=== PATIENT | male | born 1990 | race Caucasian/White ===

== ENCOUNTER 2016-10-19 15:29 | Inpatient (IN) | payer OTHER ==
[~2016-10-19] VITALS: Ht 185.4 cm; Wt 117.9 kg
--- NOTE | 2016-10-19 15:45 | NUR ---
Present self to ed due to abdominal pain, 7-8, radiating to the back associated with nausea and vomitting. Skin is warm to touch and non diaphoretic. Afebrile. Pt newly dx of pancreatis. will cont to monitor
[2016-10-19] MEDS ORDERED: ONDANSETRON HCL/PF 4 MG/2 ML VIAL ONE (15:56)
[2016-10-19] MEDS ORDERED: MORPHINE SULFATE INJ 4 MG/ML DISP.SYRIN ONE (15:56)
[2016-10-19] MEDS ORDERED: ONDANSETRON HCL/PF - ER 4 MG/2 ML VIAL IV ONE (16:00)
[2016-10-19] MEDS ORDERED: MORPHINE SULFATE INJ 2 MG/ML DISP.SYRIN IV ONE (16:00)
--- NOTE | 2016-10-19 16:00 | NUR ---
iv accessed to [facility]. blood sample sent to lab
[2016-10-19 16:01] LABS: BASOPHILS % (AUTO) 0.5 % (0.0-2.0); EOSINOPHILS # (AUTO) 0.2 /CMM (0.0-0.7); EOSINOPHILS % (AUTO) 2.1 % (0.0-6.0); HEMATOCRIT 46 % (39-51); HEMOGLOBIN 15.6 g/dL (13.5-17.5); LYMPHOCYTES # (AUTO) 2.4 /CMM (0.8-4.8); LYMPHOCYTES % (AUTO) 21.9 % (20.0-44.0); MEAN CORPUSCULAR HEMOGLOBIN 29 PG (26.0-33.0); MEAN CORPUSCULAR HGB CONC 34 g/dl (31.0-36.0); MEAN CORPUSCULAR VOLUME 84 fL (80-96); MONOCYTES # (AUTO) 0.9 /CMM (0.1-1.30); NEUTROPHILS # (AUTO) 7.4 /CMM (1.8-8.9); NEUTROPHILS % (AUTO) 67.5 % (43.0-81.0); PLATELET COUNT (AUTO) 334 /CMM (150-450); RDW COEFFICIENT OF VARIATION 12.2 (11.5-15.0); RED BLOOD CELL COUNT(AUTO) 5.41 MIL/uL (4.5-6.0); WHITE BLOOD COUNT (AUTO) 10.9 K/uL (4.3-11.0)
--- NOTE | 2016-10-19 16:04 | NUR ---
Medicated patient for pain as ordered
[2016-10-19 16:26] LABS: CALCIUM, SERUM 8.7 mg/dL (8.5-10.1); POTASSIUM 4.2 mmol/L (3.5-5.1)
[2016-10-19 16:33] LABS: ALBUMIN 4.1 g/dL (3.4-5.0); BILIRUBIN,DIRECT 0.1 mg/dL (0.0-0.2); BILIRUBIN,TOTAL 0.3 mg/dL (0.2-1.0); TOTAL PROTEIN, SERUM 7.3 g/dL (6.4-8.2)
--- NOTE | 2016-10-19 17:12 | NUR ---
DESIRE PAGED, DR. TREVOR Flores INTERACTIVE DEVELOPER
--- NOTE | 2016-10-19 17:14 | NUR ---
CALLED NURSING SUP. FOR MS BED
[2016-10-19] MEDS ORDERED: GLYC2TAB13 PO (17:15)
[2016-10-19] MEDS ORDERED: IV SET PRIMARY PUMP SET 1 EA INFUS.SET MC ONE ×2 (17:25→18:18)
[2016-10-19] MEDS ORDERED: IV NS 0.9% 1,000 ML ONE (17:25)
[2016-10-19] MEDS ORDERED: HYDROCODONE/APAP 5/325MG 1 EACH TABLET PO PRN (17:30)
[2016-10-19] MEDS ORDERED: MAG HYDROX/AL HYDROX/SIMETH 30 ML UDC PO PRN (17:30)
[2016-10-19] MEDS ORDERED: ZOLPIDEM TARTRATE 5 MG TABLET PO PRN (17:30)
[2016-10-19] MEDS ORDERED: MAGNESIUM HYDROXIDE 30 ML UDC PO PRN (17:30)
[2016-10-19] MEDS ORDERED: Z GUARD REMEDY 2 OZ OINT TP PRN (17:30)
[2016-10-19] MEDS ORDERED: ACETAMINOPHEN 325 MG TABLET PO PRN (17:30)
[2016-10-19] MEDS ORDERED: IV NS 0.9% 1,000 ML BAG IV ONE (17:30)
--- NOTE | 2016-10-19 17:48 | NUR ---
Report given to nurse Tompkins from [facility] for cherise
[2016-10-19] MEDS: IV NS 0.9% 1,000 ML IV PRN (18:24)
[2016-10-19 18:30] VITALS: BP 137/88
--- NOTE | 2016-10-19 19:30 | NUR ---
MS RN NOTE: PATIENT RESTING IN BED, NO ACUTE DISTRESS NOTED. BREATHING EVEN AND UNLABORED, NO SOB NOTED. IV TO RAC IN PLACE, INFUSING NS AT 150ML/HR. BED LOCKED AND IN LOWEST POSITION, CALL LIGHT IN REACH. WILL CONTINUE TO MONITOR.
--- NOTE | 2016-10-19 20:00 | NUR ---
MS RN NOTE: PATIENT RESTING IN BED, NO ACUTE DISTRESS NOTED. BREATHING EVEN AND UNLABORED, NO SOB NOTED. IV TO RFA IN PLACE. PATIENT BACK ON FLOOR FROM SURGERY, IN STABLE CONDITION, VITAL SIGNS STABLE. BED LOCKED AND IN LOWEST POSITION, CALL LIGHT IN REACH. WILL CONTINUE TO MONITOR. Addendum: 10/19/16 at 2027 by JOSE E ALCOCER RN WRONG PATIENT ENTRY
[2016-10-19 20:14] VITALS: BP 130/72
[2016-10-19] MEDS: ONDANSETRON HCL/PF 4 MG/2 ML VIAL IVP PRN (21:27)
[2016-10-19] MEDS: MORPHINE SULFATE INJ 2 MG/ML DISP.SYRIN IV PRN (21:28)
--- NOTE | 2016-10-19 21:35 | NUR ---
MS RN NOTE: PATIENT COMPLAINS OF ABDOMINAL PAIN 03/01, MORPHINE 2MG IV GIVEN PER MD ORDER. ZOFRAN 4MG IV ALSO GIVEN PER MD ORDER TO PREVENT NAUSEA. WILL CONTINUE TO MONITOR.
[2016-10-20] MEDS: IV NS 0.9% 1,000 ML IV PRN ×3 (04:20→22:28)
--- NOTE | 2016-10-20 06:00 | NUR ---
MS RN NOTE: PATIENT RESTING IN BED, NO ACUTE DISTRESS NOTED. BREATHING EVEN AND UNLABORED, NO SOB NOTED. IV TO RAC IN PLACE, INFUSING NS AT 150ML/HR. BED LOCKED AND IN LOWEST POSITION, CALL LIGHT IN REACH. WILL ENDORSE TO DAY NURSE TO CONTINUE WITH PLAN OF CARE.
[2016-10-20] MEDS: PANTOPRAZOLE 40 MG TABLET.DR PO SCH (06:35)
[2016-10-20] MEDS: MORPHINE SULFATE INJ 2 MG/ML DISP.SYRIN IV PRN ×4 (06:35→22:28)
--- NOTE | 2016-10-20 06:40 | NUR ---
MS RN NOTE: PATIENT COMPLAINS OF ABDOMINAL PAIN 04/01, MORPHINE 2MG IV GIVEN PER MD ORDER. WILL CONTINUE TO MONITOR.
[2016-10-20 06:56] LABS: BASOPHILS % (AUTO) 0.3 % (0.0-2.0); EOSINOPHILS # (AUTO) 0.2 /CMM (0.0-0.7); EOSINOPHILS % (AUTO) 1.8 % (0.0-6.0); HEMATOCRIT 43 % (39-51); HEMOGLOBIN 14.4 g/dL (13.5-17.5); LYMPHOCYTES # (AUTO) 2.7 /CMM (0.8-4.8); LYMPHOCYTES % (AUTO) 25.6 % (20.0-44.0); MEAN CORPUSCULAR HEMOGLOBIN 29 PG (26.0-33.0); MEAN CORPUSCULAR HGB CONC 34 g/dl (31.0-36.0); MEAN CORPUSCULAR VOLUME 85 fL (80-96); MONOCYTES # (AUTO) 0.8 /CMM (0.1-1.30); MONOCYTES % (AUTO) 7.8 % (2.0-12.0); NEUTROPHILS # (AUTO) 6.8 /CMM (1.8-8.9); NEUTROPHILS % (AUTO) 64.5 % (43.0-81.0); PLATELET COUNT (AUTO) 290 /CMM (150-450); RDW COEFFICIENT OF VARIATION 12.3 (11.5-15.0); RED BLOOD CELL COUNT(AUTO) 5.04 MIL/uL (4.5-6.0); WHITE BLOOD COUNT (AUTO) 10.6 K/uL (4.3-11.0)
[2016-10-20 07:08] LABS: ALBUMIN 3.4 g/dL (3.4-5.0); BILIRUBIN,TOTAL 0.6 mg/dL (0.2-1.0); CALCIUM, SERUM 8.4 mg/dL (8.5-10.1); CREATININE 0.9 mg/dL (0.6-1.3); MAGNESIUM 1.8 mg/dL (1.8-2.4); PHOSPHORUS 4.7 mg/dL (2.5-4.9); POTASSIUM 4.2 mmol/L (3.5-5.1); TOTAL PROTEIN, SERUM 6.2 g/dL (6.4-8.2)
--- NOTE | 2016-10-20 07:39 | NUR ---
MS/RN Patient received Patient received from publications manager. Pain level now down to 4/10 following morphine which was administered at 0635. Remains NPO, patient aware that he is unable to drink at this time. Call light within reach, Will continue to monitor.
[2016-10-20 07:54] LABS: THYROID STIMULATING HORMONE 1.44 uIU/mL (0.358-3.74)
[2016-10-20 08:00] VITALS: BP 117/65
--- NOTE | 2016-10-20 09:14 | NUR ---
MS/RN S/B DRILL PRESS OPERATOR NUMERICAL CONTROL student Seen by DRILL PRESS OPERATOR NUMERICAL CONTROL student for Dr Sharif - may have ice chips.
--- NOTE | 2016-10-20 09:25 | NUR ---
MS/RN New heplock New heplock inserted per patient request as current one is in AC and continuously beeping.
[2016-10-20] MEDS: ONDANSETRON HCL/PF 4 MG/2 ML VIAL IVP PRN ×2 (11:36→22:34)
--- NOTE | 2016-10-20 11:44 | NUR ---
MS/RN S/B Dr Brandt Seen by Dr Brandt - to continue with NPO, except medications and ice chips. Labs ordered for tomorrow.
--- NOTE | 2016-10-20 14:35 | NUR ---
MS/RN Rounds Patient resting comfortably at this time, states that pain level is 4/10. Will continue to monitor.
[2016-10-20 16:08] VITALS: BP 126/64
--- NOTE | 2016-10-20 18:05 | NUR ---
MS/RN End note Patient remains stable at this time. Last pain medication administered at 1551, per patient pain scale is now 3/10. IV fluids continue to infuse at 150ml/hr, no signs of infiltration seen. No new concerns, time allowed for all questions and concerns to be addressed. Will endorse to night club manager.
--- NOTE | 2016-10-20 19:25 | NUR ---
MS/RN NOTES RECEIVED PT. SITTING UP IN BED. AWAKE, ALERT AND ORIENTED X4. BREATHING EVEN AND UNLABORED ON ROOM AIR. NO SOB OR RESPIRATORY DISTRESS NOTED AT THIS TIME. PT. COMPLAINS OF PAIN 5/10 BUT STATES HE IS OK AND DOES NOT WANT PAIN MEDICATION AT THIS TIME. EDUCATED PT. ON IMPORTANCE OF PAIN MANAGEMENT. PT. VERBALIZED UNDERSTANDING AND STATED HE WILL NOTIFY NURSE IF PAIN LEVEL INCREASES AND HE WANTS PAIN MEDICATION. PT. WITH RIGHT AC 18 GAUGE IV SALINE LOCK PRESENT, PATENT AND INTACT. PT. WITH LEFT FOREARM 22 GAUGE PERIPHERAL IV PRESENT, PATENT AND INTACT ADMINISTERING TO PT. NS @ 150 ML/HR. PT. TOLERATING WELL. NO S/S OF INFILTRATION OR INFECTION NOTED AT IV SITES. PT. WITH FAMILY MEMBERS PRESENT AT BEDSIDE. BED IN LOWEST POSITION, CALL LIGHT WITHIN REACH, WILL CONTINUE TO MONITOR.
[2016-10-20 20:07] VITALS: BP 142/78
[2016-10-20] MEDS ORDERED: IV NS 0.9% 1,000 ML ONE (22:21)
--- NOTE | 2016-10-21 01:14 | NUR ---
MS/RN NOTES PT. LYING IN BED RESTING. BREATHING EVEN AND UNLABORED ON ROOM AIR. NO SOB, RESPIRATORY DISTRESS OR S/S OF PAIN NOTED AT THIS TIME. PT. APPEARS COMFORTABLE AT THE MOMENT. BED IN LOWEST POSITION, CALL LIGHT WITHIN REACH, WILL CONTINUE TO MONITOR.
[2016-10-21] MEDS ORDERED: IV NS 0.9% 1,000 ML ONE (04:51)
[2016-10-21] MEDS: IV NS 0.9% 1,000 ML IV PRN (04:57)
--- NOTE | 2016-10-21 06:43 | NUR ---
MS/RN NOTES PT. LYING IN BED RESTING. BREATHING EVEN AND UNLABORED ON ROOM AIR. NO SOB OR RESPIRATORY DISTRESS OR S/S OF PAIN NOTED AT THIS TIME. PT. WITH RIGHT AC 18 GAUGE IV SALINE LOCK PRESENT, PATENT AND INTACT. PT. WITH LEFT FOREARM 22 GAUGE PERIPHERAL IV PRESENT, PATENT AND INTACT ADMINISTERING TO PT. NS @ 150 ML/HR. ALL PT. NEEDS MET. PT. REMAINS NPO EXCEPT MEDS AND ICE CHIPS. BED IN LOWEST POSITION, CALL LIGHT WITHIN REACH, WILL ENDORSE TO DAYSHIFT NURSE FOR CONTINUITY OF CARE.
--- NOTE | 2016-10-21 07:30 | NUR ---
MS/RN AM NOTES PT IN BED, AWAKE, ALERT AND ORIENTED X4. BREATHING EVEN AND UNLABORED ON ROOM AIR. NO SOB OR RESPIRATORY DISTRESS NOTED AT THIS TIME. PT. COMPLAINS OF L LOWER BACK PAIN 2/10 BUT STATES HE IS OK AND DOES NOT WANT PAIN MEDICATION AT THIS TIME. PT. VERBALIZED UNDERSTANDING AND STATED HE WILL NOTIFY NURSE IF PAIN LEVEL INCREASES AND HE WANTS PAIN MEDICATION. PT. WITH RIGHT AC 18 GAUGE IV SALINE LOCK PRESENT AND LEFT FOREARM 22 GAUGE PERIPHERAL IV PRESENT, PATENT AND INTACT ADMINISTERING TO PT. NS @ 150 ML/HR. PT. TOLERATING WELL. BOTH SITES CLEAR. STILL ON NPO. BED IN LOWEST POSITION, CALL LIGHT WITHIN REACH, WILL CONTINUE TO MONITOR.
[2016-10-21 08:00] VITALS: BP 136/78
[2016-10-21] MEDS: PANTOPRAZOLE 40 MG TABLET.DR PO SCH (08:38)
--- NOTE | 2016-10-21 09:30 | NUR ---
MS RN NOTES ADMINISTERED DUE MEDS.
[2016-10-21 13:40] VITALS: BP 136/78
--- NOTE | 2016-10-21 13:40 | NUR ---
MS RN DC NOTES PATIENT DISCHARGED TO HOME TODAY PER MD IN STABLE CONDITION. TOLERATED CLEAR LIQUID DIET WELL. PROVIDED DC INSTRUCTION, MED RECON LIST AND HEALTH TEACHINGS. PATIENT TO FOLLOW UP WITH HIS PCP IN 1-2 WEEKS AND WILL SCHEDULE OWN APPOINTMENT. LEFT FA AND RT FA IV ACCESS, REMOVE, NO BLEEDING, DRESSING TO SITE IN PLACE. ALL BELONGINGS CHECKED AND RETURNED. ALL PAPERWORKS SIGNED. ACCOMPANIED BY GIRLFRIEND AND FRIEND AND COMPOSING ROOM MACHINIST, AMBULATED TO ELEVATOR AND TO BE TRANSPORTED TO HOME VIA PRIVATE CAR.
== END 2016-10-21 13:40 | disposition home or self-care (01) | DRG 440 ==
LOC: ER 15:32 → MEDSG2 17:37
DX: K85.90 Acute pancreatitis without necrosis or infection, unspecified (principal); I10 Essential (primary) hypertension; E66.9 Obesity, unspecified; Z68.34 Body mass index [BMI] 34.0-34.9, adult
CPT/HCPCS: 36415; 76705-TC; 80048-TC; 80053-TC; 80061-TC; 80076-TC; 83690-TC; 83735-TC; 84100-TC; 84443-TC; 85025-TC; 87081-TC; A4606; J2270; J2405; J7030; Z7610

== ENCOUNTER 2017-10-14 21:42 | Emergency (ER) | payer OTHER ==
[~2017-10-14] VITALS: Ht 185.4 cm; Wt 117.9 kg
[~2017-10-14 21:42] MED LIST: GLYC2TAB21 PO
[2017-10-14] MEDS ORDERED: ONDANSETRON HCL/PF 4 MG/2 ML VIAL ONE ×2 (22:26→22:30)
[2017-10-14] MEDS ORDERED: IV NS 0.9% 1,000 ML BAG IV ONE (22:30)
[2017-10-14] MEDS ORDERED: ONDANSETRON HCL/PF 4 MG/2 ML VIAL IVP ONE (22:30)
--- NOTE | 2017-10-14 22:30 | NUR ---
27 YO MALE BB SELF. PATIENT IS ALERT ANDS ORIENTED X 3, PT C/O MID ABD PAIN WITH N/V/D X 3 DAYS. PATIENT AMBULATED TO ER BED, SKN WARM AND DRY, RESP EVEN AND UNLABORED. AWAITING ORDERS FROM PROVIDER, WILL CONTINUE TO MONITOR
[2017-10-14 22:43] LABS: BASOPHILS % (AUTO) 0.4 % (0.0-2.0); EOSINOPHILS % (AUTO) 2.5 % (0.0-6.0); HEMATOCRIT 42 % (39-51); HEMOGLOBIN 14.5 g/dL (13.5-17.5); LYMPHOCYTES # (AUTO) 1.7 /CMM (0.8-4.8); LYMPHOCYTES % (AUTO) 21.6 % (20.0-44.0); MEAN CORPUSCULAR HGB CONC 34 g/dl (31.0-36.0); MEAN CORPUSCULAR VOLUME 84 fL (80-96); MONOCYTES # (AUTO) 0.8 /CMM (0.1-1.30); MONOCYTES % (AUTO) 10.2 % (2.0-12.0); NEUTROPHILS % (AUTO) 65.3 % (43.0-81.0); PLATELET COUNT (AUTO) 305 /CMM (150-450); RDW COEFFICIENT OF VARIATION 12.1 (11.5-15.0); RED BLOOD CELL COUNT(AUTO) 5.02 MIL/uL (4.5-6.0); WHITE BLOOD COUNT (AUTO) 7.7 K/uL (4.3-11.0)
[2017-10-14 22:54] LABS: CALCIUM, SERUM 8.7 mg/dL (8.5-10.1); CREATININE 0.9 mg/dL (0.6-1.3)
[2017-10-14 22:56] LABS: INR 1.07 (0.87-1.13)
[2017-10-14 23:02] LABS: ALBUMIN 3.5 g/dL (3.4-5.0); BILIRUBIN,DIRECT 0.1 mg/dL (0.0-0.2); BILIRUBIN,TOTAL 0.3 mg/dL (0.2-1.0); TOTAL PROTEIN, SERUM 6.7 g/dL (6.4-8.2)
[2017-10-14 23:30] LABS: APPEARANCE,URINE CLEAR (CLEAR); BILIRUBIN,URINE NEGATIVE (NEGATIVE); BLOOD, URINE NEGATIVE Ery/uL (NEGATIVE); COLOR,URINE YELLOW (YELLOW); KETONES,URINE NEGATIVE (NEGATIVE); LEUKOCYTE ESTERASE ,URINE NEGATIVE (NEGATIVE); NITRITE, URINE NEGATIVE (NEGATIVE); PROTEIN,URINE NEGATIVE (NEGATIVE); UGLUCOSE NEGATIVE (NEGATIVE); UROBILINOGEN,URINE 0.2 EU/dL (0.2)
[2017-10-15 00:47] VITALS: BP 161/99
--- NOTE | 2017-10-15 00:51 | NUR ---
Patient discharged to home in stable condition. Written and verbal after care instructions given. Patient verbalizes understanding of instruction. IV removed. Catheter intact and site benign. Pressure and 4x4 applied to site. No bleeding noted.
== END 2017-10-15 00:52 | disposition home or self-care (01) ==
LOC: ER 21:48
DX: R10.9 Unspecified abdominal pain (principal); R11.2 Nausea with vomiting, unspecified; R19.7 Diarrhea, unspecified; Z91.018 Allergy to other foods
CPT/HCPCS: 36415; 80048-TC; 80076-TC; 81000-TC; 83690-TC; 85025-TC; 85730-TC; A4606; J2405; J7030; Z7610